=== PATIENT | female | born 1950 | race Caucasian/White ===

== ENCOUNTER 2018-11-08 13:53 | Inpatient (IN) | payer BC ==
[2018-11-03 14:40] VITALS: BMI 29.7
--- NOTE | 2018-11-08 07:22 | HP ---
History & Physical Update - History History: No Change - Physical Physical: No Change - Assessment Assessment: No Change - Plan Plan: No Change (Initial H&P is located in her paper chart. It is complete/ accurate. No new complaints or medications.)
--- NOTE | 2018-11-08 13:52 | OP ---
Operative Note - Note: Operative Date: 11/08/18 Pre-Operative Diagnosis: Cervical stenosis with radiculopathy Operation: ACDF C3-C5; neuromonitoring Implants: Allograft implant x 2 Post-Operative Diagnosis: Same as Pre-op Surgeon: Carlos Andrews Wrist Closer: Oscar Qureshi Anesthesiologist/INNOVATION MANAGER: Tian Cordero Anesthesia: General Specimens Removed: C3/4, C4/5 discs Estimated Blood Loss (mls): 20 Drains & Tubes with Location: SHARMILA - anterior neck Fluid Volume Replaced (mls): 1,000 Operative Report Dictated: Yes
[~2018-11-08 13:53] MED LIST: CEFAZOLIN 2 GM in DEXTROSE 5%-WATER - 100 ML IVPB ONE; DEXAMETHASONE SOD PHOSPHATE/PF 10 MG/ML SDV ONE; HYDROmorphone HCL/PF 1 MG/ML AMP ONE; LIDOCAINE 1%/EPI 1:100000 (20 ML MULTI DOSE VIAL) ONE; MIDAZOLAM HCL 2 MG/2 ML SINGLE DOSE VIAL ONE; NALOXONE HCL 0.4 MG/ML VIAL ONE; PROPOFOL 20 ML ONE; SUCCINYLCHOLINE CHLORIDE 200 MG/10 ML SYRINGE ONE; ePHEDrine SULFATE 50 MG/1 ML AMPULE ONE; fentaNYL CITRATE 250 MCG/5 ML VIAL ONE; oxyCODONE HCL 5 MG TABLET PO PRN
--- NOTE | 2018-11-08 13:53 | SURG ---
Surgery Volleyball Assistant Coach Note Volleyball Assistant Coach: Oscar Qureshi PA-C Date of Service: 11/08/18 Diagnosis: Cervical Stenosis w/ radiculopthy Procedure: ACDF C3/4, C4/5; allograft implant x 2; neuromonitoring I was present for the entirety of the operative procedure. For further detail, please refer to operative report. Visit type - Case Type Case Type: Scheduled - New patient This patient is new to me today: Yes Date on this admission: 11/08/18
[2018-11-08] MEDS ORDERED: ACETAMINOPHEN WITH CODEINE 300MG/30MG TABLET PO PRN (13:55)
[2018-11-08] MEDS ORDERED: HEPARIN NA (PORCINE) 5,000 UNITS/ML 1ML VIAL SQ SCH (14:00)
[2018-11-08] MEDS ORDERED: LACTATED RINGERS SOLUTION 1,000 ML/1,000 ML INFUS.BAG IV SCH (14:00)
[2018-11-08] MEDS ORDERED: KETOROLAC TROMETHAMINE 30 MG/1 ML VIAL ONE (14:15)
[2018-11-08] MEDS: KETOROLAC TROMETHAMINE 15 MG/ML VIAL IVPUSH PRN ×2 (14:20→21:19)
[2018-11-08] MEDS ORDERED: oxyCODONE HCL 5 MG TABLET PO PRN (14:34)
[2018-11-08] MEDS ORDERED: FAMOTIDINE 20 MG PREMIXED IVPB IVPB ONE (15:35)
[2018-11-08] MEDS ORDERED: FAMOTIDINE 20 MG/50 ML IVPB 20 MG/50 ML MG IVPB ONE (15:38)
[2018-11-08] MEDS ORDERED: ONDANSETRON 4 MG/2 ML VIAL ONE (15:42)
[2018-11-08] MEDS: ONDANSETRON 4 MG/2 ML VIAL IVPUSH PRN (15:51)
[2018-11-08] MEDS: DEXAMETHASONE SOD PHOSPHATE 4 MG/1 ML VIAL IVPUSH SCH (18:11)
[2018-11-08] MEDS: CEFAZOLIN 1 GM/D5W 1 GM/50 ML BAG IVPB SCH (18:11)
--- NOTE | 2018-11-08 20:38 | OP ---
DATE OF OPERATION: 11/08/2018 PREOPERATIVE DIAGNOSIS: Cervical stenosis, C3-4, C4-5. POSTOPERATIVE DIAGNOSIS: Cervical stenosis, C3-4, C4-5. PROCEDURE PERFORMED: 1. Anterior cervical diskectomy and fusion, C3-4. 2. Anterior cervical diskectomy and fusion, C4-5. 3. Placement of instrumentation, C3 to C5. SURGEON: Carlos Andrews MD PIG STICKER: JADE Ambrosio ESTIMATED BLOOD LOSS: 50 mL. INTRAVENOUS FLUIDS: Per Anesthesia. ANESTHESIA: General/MCP block. COMPLICATIONS: None. DISPOSITION: Patient brought to the PACU in stable condition. INDICATION FOR SURGERY: Patient is a 68-year-old female who has been suffering from pain from her neck down her arms. X-rays and MRI were completed which noted that she had cervical stenosis at C3-4 and C4-5. She had gone through an exhaustive course of treatment for this, which included medications, physical therapy as well as injections, and unfortunately, her pain continued to persist despite all this. At this point, risks, benefits, and alternatives were discussed, and the patient consented to surgery. OPERATIVE NOTE: Patient was brought to the operating room by the anesthesia staff. After appropriate patient identification was performed, general anesthesia was given. MCP block was also given. Patient was placed supine on the OR bed with her arms tucked in at the side. All areas of bony prominences were well padded at this time. A shoulder roll was placed underneath the neck to extend her neck to the point that she could tolerate it in the preoperative holding area. A needle was placed onto her neck to mac off the C3-4 level. X-ray was taken to confirm this was correct. Needle was removed, and 10 mL of lidocaine with epinephrine was injected into her neck at this time. Her neck was prepped and draped in a sterile manner. At this point, timeout was completed. An incision was made on the right side of her neck. Dissection was carried down to the platysma. The platysma was cut in line with the skin incision. Next, the interval between the sternocleidomastoid and strap muscles was developed. Next, the interval between the carotid sheath and tracheoesophagus was developed. Peanuts were used to elevate it off the prevertebral fascia. A needle was placed into the C4-5 disk. X-ray was taken to confirm this was correct. Needle was removed, and the disk segments at C3-4 and C4-5 were removed. Diskectomies were completed. Endplates were decorticated. Cages filled with bone grafts were placed in. A screw was placed into the body of C4, C5, and at C3-4, a screw was placed into the body of C4 distally. AP and lateral x-rays confirmed the instrumentation to be in good position. Final tightening was performed. A drain was placed. The platysma was closed with 2-0 Vicryl suture. Skin was closed with 3-0 Monocryl suture. Dermabond was applied. Steri-Strips were applied. A sterile dressing was applied. Patient was placed supine on the OR bed, brought to the PACU in stable condition. Brent CARRILLO/[id number]
[2018-11-08] MEDS: DOCUSATE SODIUM 100 MG CAPSULE (FP) PO SCH (21:18)
[2018-11-08] MEDS: ATORVASTATIN CA 20 MG TABLET (FP) PO SCH (21:18)
[2018-11-09] MEDS: DEXAMETHASONE SOD PHOSPHATE 4 MG/1 ML VIAL IVPUSH SCH ×3 (02:22→21:22)
[2018-11-09] MEDS: CEFAZOLIN 1 GM/D5W 1 GM/50 ML BAG IVPB SCH ×2 (02:23→10:09)
[2018-11-09] MEDS: DOCUSATE SODIUM 100 MG CAPSULE (FP) PO SCH ×3 (06:10→21:22)
[2018-11-09] MEDS: KETOROLAC TROMETHAMINE 15 MG/ML VIAL IVPUSH PRN (07:30)
[2018-11-09] MEDS: ONDANSETRON 4 MG/2 ML VIAL IVPUSH PRN ×2 (07:30→14:23)
[2018-11-09] MEDS ORDERED: diazePAM 2 MG TABLET PO ONE (07:45)
[2018-11-09] MEDS ORDERED: FAMOTIDINE 20 MG/50 ML IVPB 20 MG/50 ML MG IVPB ONE (07:45)
[2018-11-09 07:58] LABS: HEMATOCRIT 35.7 % (32.4-45.2); HEMOGLOBIN 12.1 GM/dl (10.7-15.3); MCH 33.2 pg (25.7-33.7); MCHC 33.9 g/dl (32.0-36.0); MEAN CELL VOLUME 97.9 fl (80-96); MEAN PLT VOLUME 9.3 fl (7.5-11.1); PLATELET COUNT 245 K/MM3 (134-434); RBC 3.65 M/mm3 (3.60-5.2); RDW 12.2 % (11.6-15.6); WHITE BLOOD COUNT 15.4 K/mm3 (4.0-10.8)
[2018-11-09] MEDS ORDERED: HEPARIN NA (PORCINE) 5,000 UNITS/ML 1ML VIAL SQ SCH (08:00)
[2018-11-09 08:04] LABS: CREATININE 0.6 mg/dl (0.55-1.3); POTASSIUM 4.8 mmol/L (3.5-5.1)
--- NOTE | 2018-11-09 09:14 | PN ---
Progress Note (short form) - Note Progress Note: Anesthesia postop note POD#1, S/P ACDF C3-5 under GA. Pat seen and examined. VSS. No apparent post anesthesia complications.
[2018-11-09] MEDS: traMADol HCL 50 MG TABLET PO PRN (09:34)
[2018-11-09] MEDS: LOSARTAN POTASSIUM 25 MG TABLET PO SCH ×2 (09:34→09:59)
[2018-11-09] MEDS: FOLIC ACID 1 MG TABLET (FP) PO SCH ×2 (09:34→10:00)
[2018-11-09] MEDS: CALCIUM (OYSTER SHELL) 500 MG TABLET (FP) PO SCH ×2 (09:34→09:58)
[2018-11-09] MEDS ORDERED: PATIENT'S OWN MEDICATION (NON-FORMULARY) (Calcium Carbonate [Calcium] 600 MG) PO SCH (10:00)
[2018-11-09] MEDS ORDERED: ACETAMINOPHEN WITH CODEINE 300MG/30MG TABLET PO PRN ×2 (11:00→12:28)
--- NOTE | 2018-11-09 11:57 | PN ---
Progress Note (short form) - Note Progress Note: POD#1 Pt with emesis this am. She is having some upper abd pain. No flatus. OOB and ambulated. No difficulty swallowing. Left arm pain improved. Vital Signs Period Temp Pulse Resp BP Sys/Youngblood Pulse Ox Last 24 Hr 97.6 F-98.5 F 81-105 14-19 117-170/54-92 95-100 SHARMILA: serosangrenous 50ml GEN: A&0x3, NAD Neck: Sharmila removed with tip intact. No stridor. Inc c/d/i with steri-strips. Soft collar in place. CV: RRR Lungs: CTA b/l ABD: soft, non-distended, mild epigastric tenderness. LE: no calf tenderness or swelling noted b/l. SCDs in place and working. Neuro: mortgage protection sales strength equal b/l. Raising b/l upper ext over head. 5/5 drosi/ plantar flexion b/l. CBC, BMP 11/09/18 07:20 11/09/18 07:20 11/09/18 07:20
--- NOTE | 2018-11-09 14:24 | PN ---
Problem List - Problems (1) Stenosis, cervical spine Assessment/Plan: 48 yo female s/p C3-4/C4-5 ACDF, POD#1 Pain with nausea post-op and a h/o gasritis. Will begin Pepcid IV and IV zofran. Clears as tolerated. Discontinue IV fluids. Pain management with valium, tylenol#3( takes as an outpt) Discontinue oxycodone. IV steroids today. PT ambulated with PT today/only 20 steps. D/w Dr. Andrews, pts status changed to admission Code(s): M48.02 - SPINAL STENOSIS, CERVICAL REGION
[2018-11-09] MEDS ORDERED: diazePAM 5 MG TABLET PO SCH (20:00)
[2018-11-09] MEDS: FAMOTIDINE 20 MG/50 ML IVPB 20 MG/50 ML MG IVPB SCH (20:05)
[2018-11-09] MEDS: diazePAM 2 MG TABLET PO SCH (20:05)
[2018-11-09] MEDS: ATORVASTATIN CA 20 MG TABLET (FP) PO SCH (21:22)
[2018-11-10] MEDS: DOCUSATE SODIUM 100 MG CAPSULE (FP) PO SCH ×2 (05:53→11:16)
--- NOTE | 2018-11-10 06:54 | DS ---
Physical Exam: SUBJECTIVE: Patient seen and examined. POD #2 s/p C3/4, c4/5 ACDF, allograft implant, neuromonitoring. Alert. Doing well. Feeling much better today. OBJECTIVE: Vital Signs Temperature 98.6 F 11/10/18 06:00 Pulse Rate 79 11/10/18 06:00 Respiratory Rate 18 11/10/18 06:00 Blood Pressure 145/60 11/10/18 06:00 O2 Sat by Pulse Oximetry (%) 95 11/10/18 06:00 PHYSICAL EXAM GENERAL: The patient is awake, alert, and fully oriented, in no acute distress. HEAD: Normal with no signs of trauma. EYES: PERRL, extraocular movements intact NECK: Trachea midline, full range of motion, supple. Right neck incision c/d/i without signs of infection. SHARMILA 20ml/24hrs. LUNGS: CTA bilat anteriorly HEART: RRR ABDOMEN: Soft. Nt. ND EXTREMITIES: 2+ pulses, warm, well-perfused, no edema. NEUROLOGICAL: CN II - XII grossly intact. Normal speech, gait not observed. PSYCH: Normal mood, normal affect. SKIN: Warm, dry, normal turgor, no rashes or lesions noted. LABS CBC,CMP WBC 15.4 K/mm3 (4.0-10.8) H 11/09/18 07:20 RBC 3.65 M/mm3 (3.60-5.2) 11/09/18 07:20 Hgb 12.1 GM/dl (10.7-15.3) 11/09/18 07:20 Hct 35.7 % (32.4-45.2) 11/09/18 07:20 MCV 97.9 fl (80-96) H 11/09/18 07:20 MCH 33.2 pg (25.7-33.7) 11/09/18 07:20 MCHC 33.9 g/dl (32.0-36.0) 11/09/18 07:20 RDW 12.2 % (11.6-15.6) 11/09/18 07:20 Plt Count 245 K/MM3 (134-434) 11/09/18 07:20 MPV 9.3 fl (7.5-11.1) 11/09/18 07:20 Sodium 136 mmol/L (136-145) 11/09/18 07:20 Potassium 4.8 mmol/L (3.5-5.1) 11/09/18 07:20 Chloride 100 mmol/L (98-107) 11/09/18 07:20 Carbon Dioxide 27 mmol/L (21-32) 11/09/18 07:20 Anion Gap 9 MMOL/L (8-16) 11/09/18 07:20 BUN 13.0 mg/dl (7-18) 11/09/18 07:20 Creatinine 0.6 mg/dl (0.55-1.3) 11/09/18 07:20 Est GFR (CKD-EPI)AfAm 108.55 11/09/18 07:20 Est GFR (CKD-EPI)NonAf 93.66 11/09/18 07:20 Random Glucose 157 mg/dl (74-106) H 11/09/18 07:20 Calcium 9.0 mg/dl (8.5-10) 11/09/18 07:20 HOSPITAL COURSE: Date of Admission:11/09/18 Date of Discharge: 11/10/18 The patient was admitted to the Med-Surg Unit after an elective repair of their C3-C5 stenosis. Now, s/p C3-C5 ACDF, allograft implant x 2 under neuromonitoring. The day of surgery, the patient ambulated the hallways with assistance. Narcotic and non-narcotic pain management control was achieved with an oral and IV approach. POD #1, patient was changed from 23hr admit to in-patient status for continued pain management. Also, an xray was obtained and confirmed hardware placement at C3-C5, no fractures or dislocations. SHARMILA drain removed with distal tip intact. Leanna-operative IV ABX were administered. DVT prophylaxis was achieved with SCDs and early ambulation. The patient ambulated with Physical Therapy and no services were recommended upon discharge. Narcotic scripts and or muscle relaxants were checked with [facility] CLASSROOM AIDE prior to escribe. The discharge instructions and an oral pain management plan were reviewed with the patient. All questions answered. Above plan discussed with Dr. Andrews and agreed. Minutes to complete discharge: 35 Visit type - Case Type Case Type: Scheduled
[2018-11-10 09:42] VITALS: BP 154/76; PULSE 87; TEMP 97.9
[2018-11-10] MEDS: DEXAMETHASONE SOD PHOSPHATE 4 MG/1 ML VIAL IVPUSH SCH (10:20)
[2018-11-10] MEDS: LOSARTAN POTASSIUM 25 MG TABLET PO SCH (10:22)
[2018-11-10] MEDS: diazePAM 2 MG TABLET PO SCH (10:23)
[2018-11-10] MEDS: ONDANSETRON 4 MG/2 ML VIAL IVPUSH PRN (10:23)
[2018-11-10] MEDS: FAMOTIDINE 20 MG/50 ML IVPB 20 MG/50 ML MG IVPB SCH (10:23)
[2018-11-10] MEDS: FOLIC ACID 1 MG TABLET (FP) PO SCH (10:23)
[2018-11-10] MEDS: traMADol HCL 50 MG TABLET PO PRN (12:41)
--- NOTE | 2018-11-15 13:44 | PATH ---
Surgical Pathology Report Patient Name: AZAM AYALA Med. Rec. #: [id number] /Age/Gender: 1950 (Age: 68) / F Account: [id number] Location: [facility] Taken: 11/08/2018 Received: 11/08/2018 Reported: 11/15/2018 Physicians: Carlos Andrews M.D. Specimen(s) Received DISC C3-C5 Clinical History Cervical stenosis Final Diagnosis C3-C5 DISC, EXCISION: CARTILAGE WITH DEGENERATIVE CHANGES. BONE AND SKELETAL MUSCLE TISSUE. Electronically Signed Terri Trejo M.D. Gross Description Received in formalin, labeled "C3-C5 disc" is a 0.7 x 0.5 x 0.2 cm portion of dark herrera fibrous to firm tissue. Entirely submitted in one cassette.
== END 2018-11-10 13:12 | disposition home or self-care (01) | DRG 473 ==
LOC: FM/S 13:53 → FASUSAT 13:53 → FASU 13:53 → FM/S 11-09 12:15
PROVIDERS: ADMIT Orthopaedic Surgery Orthopaedic Surgery of the Spine; ATTEND Orthopaedic Surgery Orthopaedic Surgery of the Spine
PROC: 0RB30ZZ Excision of Cervical Vertebral Disc, Open Approach (ICD-10-PCS; 2018-11-08)
PROC: 4A10X4G Monitoring of Central Nervous Electrical Activity, Intraoperative, External Approach (ICD-10-PCS; 2018-11-08)
PROC: 0RG20A0 Fusion of 2 or more Cervical Vertebral Joints with Interbody Fusion Device, Anterior Approach, Anterior Column, Open Approach (ICD-10-PCS; principal; 2018-11-08 11:20)
DX: M48.02 Spinal stenosis, cervical region (principal); M54.12 Radiculopathy, cervical region
CPT/HCPCS: 36415; 72050-TC-FY; 80048; 85027; 88304-TC; 94760; 97116-GP; 97162-GP